=== PATIENT | female | born 1970 | race American Indian/Alaskan Native ===

== ENCOUNTER 2017-04-30 07:58 | Day surgery (SDC) | payer OTHER ==
--- NOTE | 2017-04-29 17:06 | Short Stay Summary ---
Short Stay Documentation Date of service: 04/30/17 Narrative H&P: 46y/o with dysfunctional uterine bleeding and flooding. She reports that she experiences prolonged mensed with passage of clots. She often has episodes where she will saturate her clothing secondary to the amount of vaginal bleeding she is experiencing. Endometrial biopsy revealed benign results. Patient has been reassessed/reevaluated/re-examined. H&P has been reviewed. No interval changes. - History Principal diagnosis: dysfunctional uterine bleeding Past Medical History: No medical history Past Surgical History: Other (hemorrhoidectomy) Social history: - Allergies and Medications Current Medications: Allergies No Known Allergies Allergy (Unverified 04/29/17 14:15) Home Medications Medication Instructions Recorded Confirmed Last Taken Type No Known Home Medications [No 04/29/17 04/29/17 Unknown History Reported Home Medications] - Physical exam General appearance: no acute distress Integumentary: no rash HEENT: Atraumatic Lungs: Clear to auscultation Breasts: deferred Heart: Regular rate Gastrointestinal: normal Female Genitourinary: deferred - Brief post op/procedure progress note Date of procedure: 04/30/17 Pre-op diagnosis: dysfunctional uterine bleeding Post-op diagnosis: other (stenotic cervical os) Procedure: Diagnostic hysteroscopy Failed attempt of an endometrial ablation Anesthesia: ALINE Surgeon: FRANTZ PERSAUD Estimated blood loss: other (100 mL) Pathology: none Condition: stable - Hospital course Hospital course: The patient was admitted the day of surgery for schedule endometrial ablation. Her procedure was unsuccessful secondary to a stenotic cervical os. Please see operative note for details of surgery. The patient was discharged home when she met discharge criteria. - Disposition Condition at discharge: Good Disposition: DC-01 TO HOME OR SELFCARE Short Stay Discharge Plan Activity: other (pelvic rest for 1 week) Diet: regular Additional Instructions: Patient to schedule a follow-up appointment with Dr. Ghosh in one week Prescriptions: Ibuprofen [Motrin] 800 mg PO Q8HR PRN #60 tablet PRN Reason: Pain oxyCODONE /ACETAMINOPHEN [Percocet 5/325] 1 tab PO Q6HR PRN #30 tablet PRN Reason: Pain
[2017-04-30] MEDS ORDERED: NACL BACTERIOSTATIC INFILTRATI ONE (09:21)
[2017-04-30] MEDS ORDERED: DECADRON IV NR ×2 (09:21→10:00)
[2017-04-30] MEDS ORDERED: DILAUDID IV PRN (09:21)
[2017-04-30] MEDS ORDERED: ZOFRAN IV PRN (09:21)
--- NOTE | 2017-04-30 09:29 | Anesthesia Consultation ---
Anesthesia Consult and Med Hx Date of service: 04/30/17 - Airway Anesthetic Teeth Evaluation: Good ROM Head & Neck: Adequate Mental/Hyoid Distance: Adequate Mallampati Class: Class I Intubation Access Assessment: Good - Pulmonary Exam CTA: Yes - Cardiac Exam Cardiac Exam: RRR - Pre-Operative Health Status ASA Pre-Surgery Classification: ASA1 Proposed Anesthetic Plan: General, MAC (depending on surgeon's needs) - Pulmonary Hx Smoking: No Hx Asthma: No Hx Respiratory Symptoms: No - Cardiovascular System Hx Hypertension: No - Central Nervous System Hx Psychiatric Problems: No - Gastrointestinal Hx Gastroesophageal Reflux Disease: No - Endocrine Hx Renal Disease: No Hx Thyroid Disease: No - Other Systems Hx Alcohol Use: No Hx Substance Use: No Hx Cancer: No
--- NOTE | 2017-04-30 09:29 | Anesthesia Day of Surgery ---
Anesthesia Day of Surgery - Day of Surgery Patient Examined: Yes Patient H&P Reviewed: Yes Patient is NPO: Yes
[2017-04-30] MEDS ORDERED: PEPCID IV NR (10:00)
[2017-04-30] MEDS ORDERED: NACL 0.9% 1000 ML 1,000 ML IV SCH (10:00)
[2017-04-30] MEDS ORDERED: VERSED IV NR (10:00)
[2017-04-30] MEDS ORDERED: SILVER NITRATE TP ONE ×2 (10:33)
[2017-04-30] MEDS ORDERED: DIPRIVAN 10 MG/ML IV ONE (10:34)
[2017-04-30] MEDS ORDERED: XYLOCAINE MPF 2% ONE (10:35)
[2017-04-30] MEDS ORDERED: DILAUDID ONE (10:35)
[2017-04-30] MEDS ORDERED: ZOFRAN ONE (10:55)
[2017-04-30] MEDS ORDERED: NACL 0.9% IR ONE ×2 (11:15)
[2017-04-30] MEDS ORDERED: TORADOL ONE (11:16)
--- NOTE | 2017-04-30 11:31 | Operative Report ---
Operative Report Operative Report: Date of procedure: 04/30/2017 Pre-operative diagnosis: Dysfunctional uterine bleeding Post-operative diagnosis: Same as above; stenotic cervical os Procedure name(s): Diagnostic Hysteroscopy; failed attempt at an endometrial ablation Surgeon: Christy Garza M.D. Stoneworker: None Anesthesia: General tracheal anesthesia Findings stenotic and scarred cervical os Indication: 46-year-old 063 with a history of dysfunctional uterine bleeding. Procedure The patient was taken to the operating room and given general tracheal anesthesia without complication. The patient was prepped and draped in a normal sterile fashion. A bivalve speculum was placed in the patient's vagina single-tooth tenaculums placed on the anterior lip of the cervix. The cervical os could not be dilated. An attempt was made to place the uterine sound. The hysteroscope was then placed. It was noted that the internal cervical os was significantly stenotic as was the external os. Insufflation of the uterine cavity was performed with normal saline. Multiple attempts were made to dilate the cervical os but were unsuccessful. The hysteroscope could not be inserted into the uterine cavity. The patient was at significant risk for creation of a false track if the procedure was continued. The hysteroscope was then removed. The procedure was aborted. The remainder of the vaginal instruments were then removed atraumatically. The patient was then successfully extubated taken to the recovery room. All sponge laps and needle counts were correct 2.
--- NOTE | 2017-04-30 11:55 | Post Anesthesia Evaluation ---
- Post Anesthesia Evaluation Patient Participated: Yes Airway Patent: Yes Stable Respiratory Function: Yes Nausea/Vomiting: No Temp > 96.8F: Yes Pain Manageable: Yes Adequeate Hydration: Yes Anesthesia Complications: No
[2017-04-30 14:16] VITALS: BP 104/60
== END 2017-04-30 13:20 | disposition home or self-care (01) ==
LOC: OR 07:58
PROVIDERS: ATTEND Obstetrics & Gynecology
DX: N93.8 Other specified abnormal uterine and vaginal bleeding (principal); N88.8 Other specified noninflammatory disorders of cervix uteri; Z53.9 Procedure and treatment not carried out, unspecified reason; Z98.890 Other specified postprocedural states
CPT/HCPCS: 58555; 81025; A4217; J1100; J1170; J1885; J2405; J2704; J7030

== ENCOUNTER 2017-06-04 07:40 | Day surgery (SDC) | payer OTHER ==
--- NOTE | 2017-06-03 17:23 | Short Stay Summary ---
Short Stay Documentation Date of service: 06/03/17 Narrative H&P: 47y/o with dysfunctional uterine bleeding. Patient had a previous attempt at an ablation however it was unsuccessful secondary to a stenotic cervical os. The patient has had 6 prior terminations that has likely contributed to the scarring of her cervix. Patient has been reassessed/reevaluated/re-examined. H&P has been reviewed. No interval changes. - History Principal diagnosis: dysfunctional uterine bleeding Past Medical History: No medical history Past Surgical History: Other (hemorrhoidectomy; hysteroscopy) Social history: - Allergies and Medications Current Medications: Allergies No Known Allergies Allergy (Verified 05/30/17 15:40) Home Medications Medication Instructions Recorded Confirmed Last Taken Type Norgestimate-Ethinyl Estradiol 1 tab PO DAILY 05/30/17 05/30/17 Unknown History [Norg-Ethin Estra 0.25-0.035 mg] - Physical exam General appearance: no acute distress Integumentary: no rash HEENT: Atraumatic Lungs: Clear to auscultation Breasts: deferred Heart: Regular rate Gastrointestinal: normal Female Genitourinary: other (cervical stenosis) Rectal Exam: deferred - Brief post op/procedure progress note Date of procedure: 06/04/17 Pre-op diagnosis: dysfunctional uterine bleeding Post-op diagnosis: same Procedure: Hysteroscopy Endometrial ablation via NovaSure Anesthesia: MAC Surgeon: FRANTZ PERSAUD Estimated blood loss: minimal Pathology: none - Hospital course Hospital course: The patient was admitted the day of surgery and underwent a hysteroscopy and endometrial ablation. Please see operative note for details of surgery. Her postoperative course was uneventful. - Disposition Condition at discharge: Good Disposition: DC-01 TO HOME OR SELFCARE Short Stay Discharge Plan Activity: other (pelvic rest for 1 week) Diet: regular Additional Instructions: Patient may schedule follow-up in 2-[address] Ghosh Prescriptions: Ibuprofen [Motrin] 800 mg PO Q8HR PRN #60 tablet PRN Reason: Pain oxyCODONE /ACETAMINOPHEN [Percocet 5/325] 1 tab PO Q6HR PRN #30 tablet PRN Reason: Pain
[2017-06-04] MEDS ORDERED: NACL BACTERIOSTATIC INFILTRATI ONE (09:08)
[2017-06-04] MEDS ORDERED: DIPRIVAN 10 MG/ML IV ONE (09:18)
[2017-06-04] MEDS ORDERED: DILAUDID ONE (09:19)
--- NOTE | 2017-06-04 09:48 | Anesthesia Consultation ---
Anesthesia Consult and Med Hx Date of service: 06/04/17 - Airway Anesthetic Teeth Evaluation: Good ROM Head & Neck: Adequate Mental/Hyoid Distance: Adequate Mallampati Class: Class III Intubation Access Assessment: Probably Good - Pulmonary Exam CTA: Yes - Cardiac Exam Cardiac Exam: RRR - Pre-Operative Health Status ASA Pre-Surgery Classification: ASA2 Proposed Anesthetic Plan: General - Pulmonary Hx Smoking: No Hx Asthma: No Hx Respiratory Symptoms: No - Cardiovascular System Hx Hypertension: No - Central Nervous System Hx Psychiatric Problems: No - Gastrointestinal Hx Gastroesophageal Reflux Disease: No - Endocrine Hx Renal Disease: No Hx Thyroid Disease: No - Other Systems Hx Alcohol Use: No Hx Substance Use: No Hx Cancer: No
--- NOTE | 2017-06-04 09:48 | Anesthesia Day of Surgery ---
Anesthesia Day of Surgery - Day of Surgery Patient Examined: Yes Patient H&P Reviewed: Yes Patient is NPO: Yes
[2017-06-04] MEDS ORDERED: VERSED ONE (10:00)
[2017-06-04] MEDS ORDERED: TORADOL IV PRN (10:00)
[2017-06-04] MEDS ORDERED: XYLOCAINE MPF 2% ONE (10:00)
[2017-06-04] MEDS ORDERED: LACTATED RINGERS 1,000 ML IV SCH ×2 (10:00)
[2017-06-04] MEDS ORDERED: VERSED IV NR (10:00)
[2017-06-04] MEDS ORDERED: ZOFRAN IV PRN (10:00)
[2017-06-04] MEDS ORDERED: TORADOL ONE (10:11)
[2017-06-04] MEDS ORDERED: NACL 0.9% IR ONE (10:32)
--- NOTE | 2017-06-04 10:49 | Operative Report ---
Operative Report Operative Report: Date of procedure: 06/04/2017 Pre-operative diagnosis: Dysfunctional uterine bleeding Post-operative diagnosis: Same as above Procedure name(s): Hysteroscopy; endometrial ablation via NovaSure Surgeon: Christy Garza M.D. Family Law Attorney: None Anesthesia: LMA Findings: Synechiae involving the endometrial cavity; cervical stenosis Indication: 47-year-old with a history of dysfunctional uterine bleeding. The patient's elected for surgical management of her symptoms. Procedure The patient was taken to the operating room and given general tracheal anesthesia without complication. The patient was prepped and draped in a normal sterile fashion. A bivalve speculum was placed in the patient's vagina single-tooth tenaculums placed on the anterior lip of the cervix. The cervical os was dilated with graduated dilators. A uterine sound was inserted. The hysteroscope was then placed. Insufflation of the uterine cavity was performed with normal saline. Gen. survey of the uterine cavity revealed synechiae involving the endometrial cavity. The hysteroscope was then removed. The NovaSure device was then inserted. The endometrial length was 4.5 cm and the uterine width was by 4.5 cm. The device was engaged and it passed the surveillance of the uterine cavity. The NovaSure device was then deployed with a energy of 111 W that lasted for 1 minute 36 seconds. The NovaSure device was then removed. The hysteroscope was again reinserted. There was evidence of charring of the endometrial surface. The remainder of the vaginal instruments were then removed atraumatically. The patient was then successfully extubated taken to the recovery room. All sponge laps and needle counts were correct 2.
[2017-06-04 11:50] VITALS: BP 128/78
== END 2017-06-04 12:55 | disposition home or self-care (01) ==
LOC: OR 07:40
PROVIDERS: ATTEND Obstetrics & Gynecology
DX: N88.2 Stricture and stenosis of cervix uteri (principal); N85.6 Intrauterine synechiae
CPT/HCPCS: 58563; 81025; A4217; J1170; J1885; J2250; J2704; J7120